=== PATIENT | male | born 1950 | race Caucasian/White ===

== ENCOUNTER → 2018-10-12 | Outpatient (CLI) | payer MEDICARE ==
--- NOTE | 2018-10-12 15:22 | CT ---
EXAM DESCRIPTION: Abdoment/Pelvis w/o Contrast CLINICAL HISTORY: ABD PAIN COMPARISON: None. TECHNIQUE: Noncontrast transaxial CT images of the abdomen and pelvis are obtained. This exam was performed according to our departmental dose-optimization program, which includes automated exposure control, adjustment of the mA and/or kV according to patient size and/or use of iterative reconstruction technique . FINDINGS: Visualized lung bases show small right pleural effusion. Compressive atelectasis versus pulmonary infiltrate in the right lower lobe is seen. Several noncalcified nodular densities in the medial aspect of the right lower lobe are noted measuring 8 mm diameter. Moderate intrahepatic biliary ductal dilatation is seen. The mid to distal common bile duct is not well identified. Fullness in the head of the pancreas seen measuring 4.8 x 4.4 cm. The remainder of the pancreas is unremarkable. Cholecystectomy changes are seen. Incidental right adrenal gland mass measuring 3.3 x 2.1 cm shows diffuse homogeneous decreased attenuation with Hounsfield units of -12. Left adrenal gland is unremarkable. Spleen is unremarkable. Enlarged lymph nodes in the epigastric region are seen measuring 1.6 cm diameter. Enlarged lymph nodes in the periaortic and pericaval region of the midabdomen are seen above the level of the renal vessels measuring up to 18 mm. Enlarged retrocrural lymph nodes are seen right greater than left. Soft tissue mass to the right of the T12-L1 vertebral bodies is seen. Mild atherosclerotic disease. Horseshoe kidney is noted. Multiple nonobstructing calcifications are seen in calyces of the left kidney measuring up to 11 mm. 1.5 cm calcification in the expected location of the lower pole right kidney is seen. No ureteral calcification. Fluid attenuation 4.0 cm cyst of the midpole right kidney is seen. Small fat-containing umbilical hernia seen. Urinary bladder is contracted. Severe diffuse urinary bladder wall thickening is seen measuring up to 17 mm with surrounding fat stranding. Thickening of the rectus abdominis muscle attachment anterior to the urinary bladder is seen. Prostate is mildly enlarged. Moderate prostate calcifications are seen. The appendix is not identified. Stomach is poorly distended and unremarkable. No small bowel obstruction is seen. Surgical suture line in the left mid colon is seen. No significant diverticular disease. Enlarged lymph nodes along the common and external iliac chain region are seen bilaterally. Osseous structures demonstrate multiple ill-defined sclerotic metastases throughout the lumbar spine, pelvis, and proximal femurs. More diffuse osteoblastic metastatic lesions involving L1 are seen. Rib lesions are also seen. Small amount of ascites in the lower pelvis. 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 Etiology unknown. Consider prostate cancer primary. Intrahepatic biliary ductal dilatation is seen with question of mass in the head of the pancreas worrisome for pancreatic neoplastic disease versus enlarged lymph nodes obstructing the biliary ductal system. Enlarged retrocrural and retroperitoneal lymph nodes are seen concerning for lymphatic spread of neoplastic process and/or lymphoma. Horseshoe kidney with nonobstructing nephrolithiasis. Severe diffuse circumferential urinary bladder wall thickening could be secondary to poor distention of the urinary bladder versus some degree of chronic bladder outlet obstruction. Infectious or inflammatory etiology could have a similar appearance. Neoplastic process is also a consideration. Question associated inflammation of the inferior rectus muscle on the right. Mild fat stranding and inflammation of the central mesentery is seen. Small amount of ascites in the pelvis. Consider postcontrast CT imaging for better evaluation if the patient has no significant risk factors. Noncalcified pulmonary nodules in the right lower lobe measuring 8 mm diameter. Consider follow-up CT chest imaging in 3-6 months 2017 Fleischner Society Recommendations for Multiple Solid Lung Nodules Follow-Up base on size (average of long- and short-axis diameters). Use most suspicious nodule for followup. Nodule Size <6 mm Low-Risk Patient: No routine follow-up Nodule Size <6 mm High-Risk Patient: Optional CT at 12 months Nodule Size 6-8 mm Low-Risk Patient: CT at 3-[address] at 18-24 months Nodule Size 6-8 mm High-Risk Patient: CT at 3-6 months then at 18-24 months Nodule Size (mm) >8 Low-Risk Patient: CT at 3-6 months, then consider CT at 18-24 months Nodule Size (mm) >8 High-Risk Patient: CT at 3-6 months, then at 18-24 months Findings on this exam were called to Dr. JENNIFER BENITES at 10/12/2018 3:20 PM [employer]. Electronically signed by: Vignesh Hallman MD 10/12/2018 3:20 PM [employer]
== END ==
LOC: CT 13:23
PROVIDERS: ATTEND General Practice
DX: C79.51 Secondary malignant neoplasm of bone (principal); K83.9 Disease of biliary tract, unspecified; N20.0 Calculus of kidney; R18.8 Other ascites; R91.8 Other nonspecific abnormal finding of lung field; R10.9 Unspecified abdominal pain; R17 Unspecified jaundice